=== PATIENT | male | born 1955 | race Caucasian/White ===

== ENCOUNTER 2020-03-18 15:39 | Emergency (ER) | payer MEDICARE ==
[2020-03-18] MEDS ORDERED: HYDROCHLOROTH12.5 MG PO (18:22)
[2020-03-18] MEDS ORDERED: ACYCLOVIR800 MG PO (18:24)
[2020-03-18] MEDS ORDERED: HYDROCODONE-AC1 EACH PO (18:29)
== END 2020-03-18 18:33 | disposition home or self-care (01) ==
LOC: ER1 15:39
DX: B02.9 Zoster without complications (principal); I10 Essential (primary) hypertension
CPT/HCPCS: 99282